=== PATIENT | female | born 1975 | race Two or more races ===

== ENCOUNTER 2018-05-21 14:35 | Emergency (ER) | payer OTHER ==
[~2018-05-21] VITALS: Ht 152.4 cm; Wt 77.1 kg
[2018-05-21] MEDS ORDERED: CIPRO250 MG/5 M (15:02)
== END 2018-05-21 22:09 | disposition home or self-care (01) ==
LOC: ER 14:35
DX: K52.9 Noninfective gastroenteritis and colitis, unspecified (principal)

== ENCOUNTER → 2021-04-01 | Emergency (ER) | payer OTHER ==
[~2021-04-01] VITALS: Ht 162.6 cm; Wt 83.9 kg
[~2021-04-01] MED LIST: CIPRO250 MG/5 M; CIPRO500 MG PO; INTESTINEX680 M1 PO
== END | disposition home or self-care (01) ==
LOC: ER 11:29
DX: K52.89 Other specified noninfective gastroenteritis and colitis (principal); Z03.818 Encounter for observation for suspected exposure to other biological agents ruled out